=== PATIENT | male | born 1995 | race Caucasian/White ===

== ENCOUNTER → 2018-08-11 | Outpatient (CLI) | payer OTHER ==
[~2018-08-11] MED LIST: Advil200 M1 PO; Amoxicillin500 MG PO; BUPR150ER PO; Bactrim Ds Tab1 EACH PO; CEPH500 PO; DIVA500ER PO; HYDACE5325 PO; IBUP400 PO; Keflex500 MG PO; LITH300C PO; Nasonex17 GM
[2018-08-11 14:28] LABS: U Amphetamine Screen DETECTED; U Barbituate Screen Not Detected; U Benzodiazapine Screen Not Detected; U Buprenorphine Screen Not Detected; U Cannabinoids Screen DETECTED; U Cocaine Screen Not Detected; U Methadone Screen Not Detected; U Methamphetamine Screen Not Detected; U Opiates Screen Not Detected; U Oxycodone Screen Not Detected; U Phencyclidine Screen Not Detected; U Propoxyphene Screen Not Detected
== END ==
LOC: LAB 13:50 → LAB SHORT 13:50
PROVIDERS: Registered Nurse
DX: Z51.81 Encounter for therapeutic drug level monitoring (principal); Z79.899 Other long term (current) drug therapy